=== PATIENT | male | born 1990 | race Caucasian/White ===

== ENCOUNTER → 2016-09-14 | Outpatient (CLI) | payer SELFPAY ==
--- NOTE | 2016-09-14 20:57 | DI ---
CERVICAL SPINE SERIES, 09/14/2016 2:35 PM: Clinical History: Neck pain. Previous Exam: None at this facility. 3 upright views are submitted. The vertebral bodies are normal in height and size. The disc spaces ar e normal. Posterior alignment and lateral masses are normal. C1 articulates normally with C2 and the occiput. Prevertebral soft tissue planes are normal. Reading: Normal cervical spine series.
--- NOTE | 2016-09-14 21:22 | DI ---
CT ABDOMEN SCAN WITHOUT IV CONTRAST, 09/14/2016 3:32 PM : Clinical History: Hematuria. Previous Exam: 02/05/2016. Scans are performed from the lower lung bases through the liver and kidneys without IV contrast. Sagi ttal and coronal reformatted images are generated. No oral or rectal contrast was ordered. The lung bases are clear. The liver is normal. The gallbladder is grossly normal. Both adrenal glands and the pancreas are normal. There is splenomegaly. Both kidneys are normal in size, shape, position and contour. There is mild right hydronephrosis secondary to a 9-10 mm calculus at the ureteropelvic junction. There are tandem stones in the proximal third of the right ureter that measure approximate ly 7 x 7 x 10 mm each. The remainder of the right ureter is normal. There is no extravasation of urin e from the right kidney or ureter. There is no left hydronephrosis or hydroureter. No left renal or u reteral calculi are present. The bladder is normal. There are no abnormal retrocrural or periaortic n odes. No ascites is present. READIN. Low grade right hydronephrosis and hydroureter of the proximal third of the right ureter secondar y to a stone at the ureteropelvic junction measuring about 9-10 mm in diameter, and 2 tandem stones i n the proximal third of the right ureter each measuring 7 x 7 x 10 mm. There is no extravasation of u rine. The left kidney and ureter are normal. The bladder is also normal. 2. Splenomegaly. 3. The remainder of the study is normal. CT PELVIS SCAN WITHOUT IV CONTRAST, 09/14/2016 3:32 PM : Clinical History: See above. Previous Exam: 02/05/2016. Scans are performed from the inferior margin of the liver and kidneys to the symphysis pubis without IV contrast. There is no free fluid collection and there is no adenopathy. The appendix is normal. The small bowel , terminal ileum, and ileocecal valve are normal. The colon is also normal. There is a 1 cm diameter defect in the linea alba roughly 3 cm superior to the umbilicus through which only mesenteric fat has herniated into the subcutaneous fat. There is also a small umbilical hernia through which only mesen teric fat has herniated. READIN. There is a midline small hernia in the linea alba above the umbilicus as well as an umbilical her kami in both hernias contain only mesenteric fat. 2. The remainder of the exam is normal.
== END ==
LOC: MOB RAD 14:37
PROVIDERS: ATTEND Family Medicine
DX: R31.9 Hematuria, unspecified (principal); M54.2 Cervicalgia; N13.2 Hydronephrosis with renal and ureteral calculous obstruction; R16.1 Splenomegaly, not elsewhere classified
CPT/HCPCS: 72040; 74176; 87088